=== PATIENT | female | born 1980 | race African-American/Black ===

== ENCOUNTER → 2017-05-24 | Outpatient (CLI) | payer OTHER ==
[~2017-05-24] MED LIST: GADOBUTROL 7.5 MMOL/7.5 ML VIAL INT ART ONE; IOHEXOL 300 MG/ML 50 ML VIAL. INT ART ONE; LIDOCAINE 1% Multi-Dose 20 ML VIAL. ID ONE
--- NOTE | 2017-05-24 13:59 | KCIC ---
Left shoulder injection using fluoroscopic guidance, prior to MRI. Indication: Previous left shoulder dislocations. Left shoulder pain.. Technique: The procedure was explained to the patient as were potential risks including bleeding and infection and allergic reaction.. All questions were answered. Informed written consent was obtained. A timeout was performed which confirmed the name of the patient and the date of and the type of procedure and the side of the procedure. Allergies to medication and contrast reviewed. No allergy to contrast or lidocaine. An appropriate skin jennifer was made on the left shoulder using fluoroscopic guidance. The left shoulder was prepped and draped in the usual sterile manner. Following administration of 3 cc of 1% lidocaine for local anesthetic, a 22-gauge needle was advanced into the left glenohumeral joint from an anterior approach. Following negative aspiration, 8 cc of a solution of 10 cc Omnipaque 300 contrast, 10 cc normal saline, and 0.2 cc of gadolinium was injected intra-articularly under fluoroscopic observation without difficulty. The contrast confirmed intra-articular position of the needle. 2 fluoroscopic spot views were taken. The needle was removed. There was good hemostasis at the injection site. The patient left in stable condition without immediate complication. The patient was given postprocedural instructions, and instructed to contact us or the ER if there are any complications. No apparent fluoroscopic abnormality is identified.. Total fluoroscopic time: 61 seconds. Total fluoroscopic spot images: 2. Impression: Successful left shoulder joint injection. MRI to follow. Electronically signed by: Aaron Hall MD (05/24/2017 1:56 PM) [id number]
--- NOTE | 2017-05-24 14:33 | KCIC ---
MRI left shoulder arthrogram Clinical indications: History of dislocations. Left shoulder pain. TECHNIQUE: After intra-articular injection of gadolinium, post arthrogram MRI sequences of the left shoulder were performed in all 3 planes. An additional ABER sequence was obtained. COMPARISON: None available. FINDINGS: No extravasation of contrast material into the subdeltoid or subacromial bursa or into the rotator cuff is seen. Therefore, no complete tear or partial articular surface tear of the rotator cuff is seen. No subdeltoid or subacromial bursitis is seen. The AC joint is unremarkable. A type II acromial process is seen. There is a tiny cyst of the posterior superior aspect of the humeral head which may be secondary to chronic impingement. No other marrow infiltrative process is seen. No bone contusion or fracture is seen. The glenoid labrum is intact and no paralabral ganglion cyst or spinoglenoid notch ganglion cyst is seen. No Hill-Sachs deformity is evident. Contrast is seen extending medially along the anterior edge of the glenoid between the glenoid and the subscapularis muscle and tendon. This is consistent with a redundant insertion of the anterior middle glenohumeral ligament. There is a prominent subcoracoid recess as well. The tendons of the short head and long head of the biceps are intact. The glenohumeral joint is normal and no loose osteochondral body is seen. IMPRESSION: No rotator cuff tear. No labral tear. Redundant anterior middle glenohumeral ligament and prominent subcoracoid recess. Electronically signed by: Aaron Hall MD (05/24/2017 2:30 PM) [id number]
== END | disposition home or self-care (01) ==
LOC: KCIC 10:06
PROVIDERS: ATTEND Physician Assistant Medical
DX: S43.005D Unspecified dislocation of left shoulder joint, subsequent encounter (principal); X58.XXXD Exposure to other specified factors, subsequent encounter
CPT/HCPCS: 73040; 73222; A9585; Q9967